=== PATIENT | female | born 1985 | race Caucasian/White ===

== ENCOUNTER → 2016-11-23 | Outpatient (REF) ==
[~2016-11-23] MED LIST: IBU800 M1 PO; PERCOCET 325 MG1 TA2 PO; PRENATAL1 TA7 PO
== END ==
LOC: WSOH 15:30
DX: Z02.89 Encounter for other administrative examinations (principal)

== ENCOUNTER 2017-07-26 19:58 | Inpatient (IN) | payer BC ==
[~2017-07-26] VITALS: Ht 167.6 cm; Wt 109.1 kg
[2017-07-26 20:15] VITALS: BP 118/74; PULSE 61; TEMP 98.5
[2017-07-26] MEDS ORDERED: PRENATAL1 TA7 PO (20:36)
[2017-07-26 21:28] LABS: BASO % 0.4 % (0.0-2.0); EOS # 0.1 (0.0-0.7); GRAN # 7.3 (1.4-6.5); GRAN % 69.1 % (42.2-75.2); HEMOGLOBIN 12.6 g/dl (12.5-16.0); LYMPH # 2.5 (1.2-3.4); LYMPH % 23.3 % (20.0-51.0); MEAN CELL VOLUME 94 fl (80.0-100.0); MEAN CORPUSCULAR HEMOGLOBIN 33 pg (27.0-31.0); MEAN CORPUSCULAR HGB CONC 34 g/dl (33.0-37.0); MEAN PLATELET VOLUME 12.5 fl (7.4-10.4); MONO # 0.6 (0.1-0.6); MONO % 5.9 % (1.7-9.3); PLATELET COUNT 144 K/mm3 (130-400); RED BLOOD COUNT 3.88 M/mm3 (4.10-5.30); REDCELL DISTRIBUTION WIDTH-CV 14.4 % (11.5-14.5); WHITE BLOOD COUNT 10.5 K/mm3 (4.8-10.8)
[2017-07-26 21:29] LABS: HEMATOCRIT 36.6 % (37.0-47.0)
[2017-07-27] VITALS (38 sets, daily range): BP systolic 94–128; BP diastolic 53–77; PULSE 53–88; TEMP 98.2–98.5
[2017-07-28 01:00] VITALS: BP 110/57; BP 126/63; PULSE 69; PULSE 72; TEMP 97.5; TEMP 98.4
[2017-07-28 03:45] VITALS: BP 110/57; PULSE 69; TEMP 97.5
[2017-07-28 05:22] LABS: BASO % 0.3 % (0.0-2.0); EOS # 0.1 (0.0-0.7); GRAN # 7.3 (1.4-6.5); GRAN % 71.3 % (42.2-75.2); LYMPH # 2.1 (1.2-3.4); LYMPH % 20.5 % (20.0-51.0); MEAN CELL VOLUME 96 fl (80.0-100.0); MEAN CORPUSCULAR HGB CONC 34 g/dl (33.0-37.0); MEAN PLATELET VOLUME 12.6 fl (7.4-10.4); MONO # 0.7 (0.1-0.6); MONO % 6.5 % (1.7-9.3); PLATELET COUNT 102 K/mm3 (130-400); RED BLOOD COUNT 3.24 M/mm3 (4.10-5.30); REDCELL DISTRIBUTION WIDTH-CV 14.6 % (11.5-14.5); WHITE BLOOD COUNT 10.2 K/mm3 (4.8-10.8)
[2017-07-28 05:23] LABS: HEMATOCRIT 31.1 % (37.0-47.0); HEMOGLOBIN 10.7 g/dl (12.5-16.0); MEAN CORPUSCULAR HEMOGLOBIN 33 pg (27.0-31.0)
[2017-07-28 07:59] VITALS: BP 105/67; PULSE 68; TEMP 98.1
[2017-07-28] MEDS ORDERED: PERCOCET 325 MG1 TA2 PO (08:36)
[2017-07-28] MEDS ORDERED: IBU800 M1 PO (08:36)
[2017-07-28 17:00] VITALS: BP 116/53; PULSE 74; TEMP 97.8
[2017-07-28 20:45] VITALS: BP 117/66; BP 127/85; PULSE 71; PULSE 86; TEMP 98.3; TEMP 98.5
[2017-07-29 06:30] LABS: MEAN CELL VOLUME 97 fl (80.0-100.0); MEAN CORPUSCULAR HGB CONC 34 g/dl (33.0-37.0); MEAN PLATELET VOLUME 12.7 fl (7.4-10.4); PLATELET COUNT 119 K/mm3 (130-400); RED BLOOD COUNT 3.12 M/mm3 (4.10-5.30); REDCELL DISTRIBUTION WIDTH-CV 14.6 % (11.5-14.5); WHITE BLOOD COUNT 9.6 K/mm3 (4.8-10.8)
[2017-07-29 06:40] LABS: HEMATOCRIT 30.3 % (37.0-47.0); HEMOGLOBIN 10.2 g/dl (12.5-16.0); MEAN CORPUSCULAR HEMOGLOBIN 33 pg (27.0-31.0)
[2017-07-29 07:31] VITALS: BP 112/68; PULSE 73; TEMP 97.6
== END 2017-07-29 14:10 | disposition home or self-care (01) | DRG 774 ==
LOC: LDRO 19:58 → LDR 20:41 → OB 20:41
PROVIDERS: Obstetrics & Gynecology; Student in an Organized Health Care Education/Training Program
PROC: 10E0XZZ Delivery of Products of Conception, External Approach (ICD-10-PCS; principal; 2017-07-27)
PROC: 0KQM0ZZ Repair Perineum Muscle, Open Approach (ICD-10-PCS; 2017-07-27)
DX: O48.0 Post-term pregnancy (principal); O72.1 Other immediate postpartum hemorrhage; O70.1 Second degree perineal laceration during delivery; Z3A.41 41 weeks gestation of pregnancy; Z37.0 Single live birth
CPT/HCPCS: J1200; J2210; J2405; J2590; J7120